=== PATIENT | male | born 1950 | race Caucasian/White ===

== ENCOUNTER 2017-01-02 05:53 | Day surgery (SDC) | payer MEDICARE, OTHER ==
[~2017-01-02 05:53] MED LIST: ASPIR 8181 M1 PO; BUSPIRONE HCL15 M2 PO; CELEXA20 M2 PO; GLUCOPHAGE1000 M1 PO; MUCINEX D ER 11 EACH PO; NORVASC5 M2 PO; OXYGEN; PRINIVIL20 M1 PO; STIOLTO RESPIMAT4 GM INH; SYMBICORT 160-1 PUFF INH; TYLENOL PM EX-1 EAC4 PO; ULTRAM50 M1 PO
[2017-01-02 06:55] LABS: BASO % 0.5 % (0-2); EOS % 3.2 % (0-7); EOSINOPHIL ABSOLUTE COUNT 0.2 tho/cmm (0.0-0.7); HCT-HEMATOCRIT 38.1 % (36.0-53.5); IMMATURE GRANULOCYTES ABSOLUTE 0.02 tho/cmm (0-0.03); IMMATURE GRANULOCYTES PERCENT 0.3 % (0-0.3); LYMPH % 19.4 % (20-45); LYMPH ABSOLUTE COUNT 1.2 tho/cmm (0.8-4.5); MCH (MEAN CORPUSCULAR HGB) 31.6 pg (28.0-32.0); MCHC MEAN CORPUSCULAR HGB CONC 34.1 % (32.0-36.0); MCV (MEAN CELL VOLUME) 92.7 fl (82.0-96.0); MEAN PLATELET VOLUME 9.8 cmc (9.4-12.4); MONO % 9.1 % (0-12); MONOCYTE ABSOLUTE COUNT 0.6 tho/cmm (0.0-1.2); NEUTROPHIL ABSOLUTE COUNT 4.3 tho/cmm (1.6-8.0); NEUTROPHIL-AUTOMATED 4.3 tho/cmm (1.6-8.0); NEUTROPHILS % 67.5 % (40-80); PLATELET COUNT 254 tho/cmm (150-450); RED BLOOD COUNT 4.11 mil/cmm (4.40-5.70); RED CELL DISTRIBUTION WIDTH 12.7 % (12.4-16.4); WHITE BLOOD COUNT 6.3 tho/cmm (4.0-10.0)
[2017-01-02 07:21] LABS: INR 0.9 INR (0.9-1.1); PROTHROMBIN TIME 10.2 SECONDS (9.0-13.6)
[2017-03-19] MEDS ORDERED: NORCO 5-325 TA1 EACH PO (07:14)
[2017-03-20] MEDS ORDERED: VALIUM5 M1 PO (00:30)
[2017-03-20] MEDS ORDERED: PERCOCET 5-3251 EACH PO (00:51)
[2017-03-20] MEDS ORDERED: CHEMO MEDICATION (15:49)
[2017-03-21] MEDS ORDERED: PERCOCET 5-3251 EACH PO (11:09)
[2017-03-21] MEDS ORDERED: MULTIVITAMINS1 EAC7 PO (11:09)
[2017-03-21] MEDS ORDERED: VALIUM5 M1 PO (11:09)
[2017-03-21] MEDS ORDERED: CISPLATIN1 MG/1 ML IV (12:49)
[2017-03-21] MEDS ORDERED: ALIMTA500 MG/20 IV (12:50)
[2017-03-21] MEDS ORDERED: ALOXI0.25 MG/5 IV (12:51)
[2017-03-21] MEDS ORDERED: EMEND150 MG IV (12:51)
[2017-03-21] MEDS ORDERED: NEULASTA6 MG/0.61 SC (12:52)
[2017-03-25] MEDS ORDERED: PULMICORT0.5 MG/22 NEB (11:38)
[2017-03-25] MEDS ORDERED: BROVANA15 MCG/22 INH (11:40)
[2017-03-25] MEDS ORDERED: TYLENOL EXTRA500 M1 PO (11:40)
[2017-03-25] MEDS ORDERED: ULTRAM50 M1 PO (11:40)
[2017-03-25] MEDS ORDERED: SYMBICORT 160-1 PUFF INH (13:54)
== END 2017-01-02 11:20 ==
LOC: CTSCAN 05:53 → SHSB 05:54
PROVIDERS: Radiology Diagnostic Radiology
PROC: 0BBC3ZX Excision of Right Upper Lung Lobe, Percutaneous Approach, Diagnostic (ICD-10-PCS; principal; 2017-01-02)
DX: C34.11 Malignant neoplasm of upper lobe, right bronchus or lung (principal); E78.5 Hyperlipidemia, unspecified; I10 Essential (primary) hypertension; J44.9 Chronic obstructive pulmonary disease, unspecified; E11.42 Type 2 diabetes mellitus with diabetic polyneuropathy; Z79.82 Long term (current) use of aspirin; Z79.84 Long term (current) use of oral hypoglycemic drugs; Z79.899 Other long term (current) drug therapy; Z87.891 Personal history of nicotine dependence; Z90.89 Acquired absence of other organs; Z98.890 Other specified postprocedural states
CPT/HCPCS: J2250; J3010; J7030